=== PATIENT | female | born 1975 | race Caucasian/White ===

== ENCOUNTER 2016-12-19 00:33 | Emergency (ER) | payer BC, MEDICAID ==
[~2016-12-19] VITALS: Ht 157.5 cm; Wt 54.5 kg
[~2016-12-19 00:33] MED LIST: AMBIEN 5MG TABLE5 MG PO; AMITRIPTYLINE H10 M1 PO; AMPYRA10 MG PO; ASTELIN NASAL S34 ML NS; AUBAGIO14 MG PO; BACLOFEN PO; BACTROBAN 22GM22 GM NAS; BCP TD; BETASERON0.3 MG SC; CALCIUM CITRAT250 MG PO; CALCIUM CITRATE PO; CARBATROL100 MG PO; COLACE 100100 MG/CAP PO; COUMADIN 5MG5 MG/TAB PO; DEPO-PROVER150 MG/M1 IM; DESYREL 50MG50 MG PO; DULCOLAX S10 MG/SUPP RC; EC NAPROSYN500 MG PO; FISH OIL CONC1000 MG PO; FLEET ENEM1 BOT/133 RC; FLORINEF ACETA0.1 MG PO; IBUPROFEN600 MG PO; KLONOPIN 0.5MG0.5 MG PO; KLONOPIN 1MG1 MG PO; LIORESAL 1010 MG/TAB PO; LIORESAL20 MG PO; MILK OF MA400 MG/5 M PO; MOTRIN 600600 MG/TAB PO; MULTIVITAMIN1 TA1 PO; NAPROSYN500 MG PO; NEXIUM 40MG40 MG PO; NEXIUM40 MG PO; OMEGA-31 SGL PO; OMEGA-31000 MG PO; PHENERGAN 25 TA25 MG PO; POLYETHYLENE GL1 PO6; PROTONIX 40MG T40 MG PO; REBIF44 MCG/0.5 SC; REGLAN 10MG10 MG/TAB PO; RITALIN 5MG5 MG/TAB PO; SENOKOT S 50 MG1 TAB PO; SONATA10 MG PO; SPRINTEC 35 MCG1 TAB PO; TRAZODO50 MG PO; TYLENOL 500MG500 MG PO; ULTRAM50 MG PO; VITAMIN D 400400 IU PO; VITAMIN D31000 IU PO; [UNRECOGNIZED DRUG - OTHER] RC
[2016-12-19 00:37] VITALS: BP 124/71; TEMP 98.7
[2016-12-19] MEDS ORDERED: AMOXICILLIN 8751 TAB PO (01:11)
[2016-12-19] MEDS ORDERED: MAGIC MOUTH PO (01:11)
[2016-12-19] MEDS ORDERED: VALTREX1 GM PO (01:11)
[2016-12-19 01:26] VITALS: PULSE 63
== END 2016-12-19 01:27 | disposition home or self-care (01) ==
LOC: COL.ER 00:33
DX: J02.9 Acute pharyngitis, unspecified (principal); G35 Multiple sclerosis; Z79.899 Other long term (current) drug therapy; B00.1 Herpesviral vesicular dermatitis

== ENCOUNTER → 2017-01-29 | Outpatient (CLI) | payer BC, MEDICAID ==
[~2017-01-29] MED LIST changes: +AMOXICILLIN 8751 TAB PO; +MAGIC MOUTH PO; +VALTREX1 GM PO
== END ==
LOC: MC.RAD 14:38
DX: Z12.31 Encounter for screening mammogram for malignant neoplasm of breast (principal)

== ENCOUNTER 2017-02-19 11:15 | Outpatient (RCR) | payer BC, MEDICAID | END 2017-02-23 11:14 | disposition still patient (30) | LOC: WSPT 11:15 | DX: G35 Multiple sclerosis (principal); R26.89 Other abnormalities of gait and mobility; R26.81 Unsteadiness on feet ==

== ENCOUNTER → 2018-02-22 | Outpatient (CLI) | payer BC, MEDICAID | LOC: MC.RAD 10:00 | DX: Z12.31 Encounter for screening mammogram for malignant neoplasm of breast (principal) ==

== ENCOUNTER 2018-04-01 08:08 | Emergency (ER) | payer BC, MEDICAID ==
[2018-04-01 08:12] VITALS: TEMP 97.9
[2018-04-01 08:50] LABS: BASO # 0.1 (0.0-0.2); BASO % 1.3 % (0.0-2.0); EOS # 0.2 (0.0-0.7); EOS % 4.3 % (0-4.0); GRAN # 1.9 (1.4-6.5); GRAN % 47.8 % (42.2-75.2); HEMATOCRIT 38.9 % (37.0-47.0); LYMPH # 1.3 (1.2-3.4); MEAN CELL VOLUME 94 fl (80.0-100.0); MEAN CORPUSCULAR HEMOGLOBIN 32 pg (27.0-31.0); MEAN CORPUSCULAR HGB CONC 33 g/dl (33.0-37.0); MEAN PLATELET VOLUME 10.1 fl (7.4-10.4); MONO # 0.5 (0.1-0.6); MONO % 13.3 % (1.7-9.3); PLATELET COUNT 239 K/mm3 (130-400); RED BLOOD COUNT 4.13 M/mm3 (4.10-5.30); REDCELL DISTRIBUTION WIDTH-CV 11.8 % (11.5-14.5)
[2018-04-01 09:04] LABS: ALANINE AMINOTRANSFERASE 26 U/L (9-52); ALBUMIN 3.7 gm/dL (3.5-5.0); ALKALINE PHOSPHATASE 47 U/L (50-136); ANION GAP 5 mmol/L (7-16); AST,SGOT 24 U/L (15-37); BILIRUBIN,TOTAL 0.4 mg/dL (0.0-1.0); BLOOD UREA NITROGEN 15 mg/dL (7-17); CALCIUM 10.7 mg/dL (8.4-10.2); CARBON DIOXIDE 32 mmol/L (22-30); CHLORIDE 103 mmol/L (98-107); CREATININE, serum 0.82 mg/dL (0.52-1.25); GLUCOSE 93 mg/dL (74-106); POTASSIUM 3.2 mmol/L (3.4-5.0); SODIUM 140 mmol/L (137-145); TOTAL PROTEIN 6.2 gm/dL (6.4-8.2)
[2018-04-01 09:15] LABS: TROPONIN-I < 0.012 ng/mL (0.000-0.034)
[2018-04-01] MEDS ORDERED: K-DUR 10 MEQ T10 MEQ PO (10:13)
[2018-04-01 10:22] VITALS: BP 132/74; PULSE 57
== END 2018-04-01 10:23 | disposition home or self-care (01) ==
LOC: COL.ER 08:08
PROVIDERS: Emergency Medicine
DX: R07.89 Other chest pain (principal); I10 Essential (primary) hypertension
CPT/HCPCS: J1885

== ENCOUNTER 2018-06-02 13:00 | Outpatient (RCR) | payer BC, MEDICAID ==
[~2018-06-02 13:00] MED LIST changes: +K-DUR 10 MEQ T10 MEQ PO
== END 2018-06-02 16:03 | disposition home or self-care (01) ==
LOC: MKS.ESL.PT 13:00
DX: G35 Multiple sclerosis (principal); R29.898 Other symptoms and signs involving the musculoskeletal system

== ENCOUNTER → 2019-05-09 | Outpatient (CLI) | payer BC, MEDICAID | LOC: MC.RAD 04-05 11:45 | DX: Z12.31 Encounter for screening mammogram for malignant neoplasm of breast (principal) ==

== ENCOUNTER → 2020-05-21 | Outpatient (CLI) | payer BC, MEDICAID | LOC: MC.RAD 15:13 | DX: Z12.31 Encounter for screening mammogram for malignant neoplasm of breast (principal) ==

== ENCOUNTER → 2021-03-07 | Outpatient (CLI) | payer BC, MEDICAID | LOC: COL.RAD 13:07 | DX: M79.671 Pain in right foot (principal) | CPT/HCPCS: J3301; Q9967 ==

== ENCOUNTER → 2021-05-07 | Outpatient (CLI) | payer BC, MEDICAID | LOC: COL.RAD 13:47 | DX: M79.671 Pain in right foot (principal) ==

== ENCOUNTER → 2021-06-13 | Outpatient (CLI) | payer BC, MEDICAID | LOC: MC.RAD 10:30 | DX: Z12.31 Encounter for screening mammogram for malignant neoplasm of breast (principal); N63.10 Unspecified lump in the right breast, unspecified quadrant ==

== ENCOUNTER → 2021-06-19 | Outpatient (CLI) | payer BC, MEDICAID | LOC: MC.RAD 07:00 | DX: R92.8 Other abnormal and inconclusive findings on diagnostic imaging of breast (principal) ==

== ENCOUNTER → 2022-01-26 | Outpatient (CLI) | payer BC, MEDICAID | LOC: COL.RAD 13:15 | DX: M19.012 Primary osteoarthritis, left shoulder (principal) | CPT/HCPCS: A9575; Q9967 ==

== ENCOUNTER → 2022-06-30 | Outpatient (CLI) | payer BC, MEDICAID | LOC: MC.RAD 13:59 | DX: Z12.31 Encounter for screening mammogram for malignant neoplasm of breast (principal); N64.89 Other specified disorders of breast ==

== ENCOUNTER → 2022-07-07 | Outpatient (CLI) | payer BC, MEDICAID | LOC: MC.RAD 14:13 | DX: N63.14 Unspecified lump in the right breast, lower inner quadrant (principal) ==

== ENCOUNTER 2024-05-31 08:21 | Inpatient (IN) | payer BC, MEDICAID ==
[~2024-05-31] VITALS: Ht 157.5 cm; Wt 62.0 kg
[~2024-05-31 08:21] MED LIST changes: -CALCIUM CITRATE PO; +CALCIUM CITRATE1 TA1 PO; +LEADER CLE17 GM/Dose PO; +MULTI VITAMINS1 TAB PO; -MULTIVITAMIN1 TA1 PO; +OMEGA-3 FISH1000 MG PO; -OMEGA-31 SGL PO; -POLYETHYLENE GL1 PO6
--- NOTE | 2024-05-31 13:00 | NUR ---
Pt arrived @ 1230. Transported from [facility] by transportation services. Pt a&ox4. Ambulates with assist x1, walker, and gait belt. Intake and assessment complete. Pt arrived with a small bag, suitcase, and purse. Transfer paperwork received from CINDY. Pt oriented to room and settled in her bed. No further needs at this time. Call light and personal belongings within reach. Bed exit alarm on.
[2024-05-31] MEDS ORDERED: Acetaminophen 325 MG TAB PO PRN (13:30)
[2024-05-31] MEDS ORDERED: Sennosides/Docusate 8.6-50 MG TAB PO PRN (13:30)
[2024-05-31] MEDS ORDERED: Docusate Sodium 100 MG CAP PO PRN (13:30)
[2024-05-31] MEDS ORDERED: Polyethylene Glycol 3350 17 GM PDS PO PRN (13:30)
[2024-05-31] MEDS ORDERED: NEURONTIN300 MG/CAP PO (13:39)
[2024-05-31] MEDS ORDERED: COZAAR100 MG PO (13:40)
[2024-05-31] MEDS ORDERED: PLENDIL 2.5MG2.5 MG PO (13:41)
[2024-05-31] MEDS ORDERED: Ibuprofen 600 MG TAB PO PRN (14:00)
[2024-05-31] MEDS ORDERED: Baclofen 10 MG TAB PO SCH (14:00)
[2024-05-31] MEDS ORDERED: Acetaminophen 500 MG TAB PO PRN (14:00)
[2024-05-31] MEDS ORDERED: valACYclovir 500 MG TAB PO ONE (14:00)
[2024-05-31] MEDS ORDERED: clonazePAM 1 MG TAB PO SCH ×2 (15:45→21:00)
[2024-05-31] MEDS ORDERED: Amoxicillin/Clavulanate K+ 875/125 MG TAB PO SCH (17:00)
[2024-05-31] MEDS ORDERED: Heparin 5,000 UNITS/ML 1 ML VIAL SQ SCH (17:32)
[2024-05-31 18:33] VITALS: BP 125/69; PULSE 73; TEMP 97.7
[2024-05-31 19:00] VITALS: BP_SYST 125
--- NOTE | 2024-05-31 19:00 | NUR ---
RECEIVED CHANGE OF SHIFT REPORT FROM DAY SHIFT NURSE. PATIENT IN BED, FAMILY IN ROOM. PATIENT'S HOME MEDS OF AMPURA AND KESIMPTA WERE BROUGHT FROM HOME BY FAMILY, GIVEN TO NURSING. INFORMED PHARMACY OF THESE TWO HOME MEDS FOR PHARMACY TO TAKE AND LABEL FOR PATIENT USE DURING THEIR IPR STAY. PATIENT STATES KESIMPTA IS A NEW MED THAT PATIENT WANTS TO START THIS WEDNESDAY. PATIENT REPORTS TAKES AMPURA AT SPECIFIC TIMES OF 6 AM AND 6 PM AT HOME. BOTH MEDS SENT DOWN TO PHARMACY.
[2024-05-31] MEDS ORDERED: Gabapentin 300 MG CAP PO SCH (21:00)
[2024-05-31] MEDS ORDERED: Patient's Own Medication Item PO SCH (21:00)
[2024-05-31] MEDS ORDERED: KESIMPTA P20 MG/0.4 SQ (23:33)
[2024-06-01 05:17] VITALS: BP 107/74; PULSE 75; TEMP 98.5
[2024-06-01 07:00] VITALS: BP_SYST 107
--- NOTE | 2024-06-01 07:14 | NUR ---
CHANGE OF SHIFT REPORT GIVEN TO DAY SHIFT NURSEFRITZ.
[2024-06-01] MEDS ORDERED: Omega-3 Fatty Acid Esters (OTC) 1,000 MG CAP PO SCH (09:00)
[2024-06-01] MEDS ORDERED: CHOLECALCIFEROL PO SCH (09:00)
[2024-06-01] MEDS ORDERED: Fludrocortisone 0.1 MG TAB PO SCH (09:00)
[2024-06-01] MEDS ORDERED: Losartan 50 MG TAB PO SCH (09:00)
--- NOTE | 2024-06-01 09:55 | NUR ---
PT UP TO RECLINER FOR BREAKFAST. UP TO BR VOIDED AND RETURNED TO RECLINER. EATING AND DRINKING WITH NO NAUSEA OR VOMITING.
[2024-06-01] MEDS ORDERED: Patient's Own Medication Item IM SCH (11:30)
--- NOTE | 2024-06-01 15:35 | NUR ---
platform worker met with pt to complete intake assessment and introduce her to the unit. Pt confirms to live with her family in [place]. She sees Dr. Ortega for PCP needs and obtains medications from [facility] with no difficulties. She reports her , Hany [phone] as her contact. Her mother, Mo Charlton" [phone] is her DPOA-HC and this was verified on file. She reports to be independent with ADLS and uses a cane, FWW, rolator, and wheelchair for DME. She reports to have 8 steps to get inside her home, then it is three stories. She can typically obtain everything on the main floor, except showering. Pt reports that her mother or daughter drive her to appointments. SW informed her on team conference meetings and family meeting procedures. She had no questions. Discharge Plan: re-eval
[2024-06-01] MEDS ORDERED: Patient's Own Medication Item SQ ONE (16:15)
[2024-06-01 17:43] VITALS: BP 121/82; PULSE 73; TEMP 97.7
[2024-06-01 19:09] VITALS: BP_SYST 121
--- NOTE | 2024-06-02 00:35 | NUR ---
ASSESSMENT COMPLETED EARLIER. MEDICATIONS ADMINISTERED PER EMAR. PT REFUSED HOME MEDICATION STATED "IT IS TOO LATE TO TAKE ME MEDICATION NOW, IF I TAKE IT AT NOW, I HAVE AN INCREASED RISK FOR SEIZURES".
[2024-06-02 06:00] VITALS: BP 129/76; PULSE 77; TEMP 98.4
[2024-06-02 07:03] VITALS: BP_SYST 129
--- NOTE | 2024-06-02 08:47 | NUR ---
PT UP TO BR WITH SBAX1, VOIDED AND THEN TO RECLINER FOR BREAKFAST. REVIEWED CARE PLAN. VSS, PT ATE 100 % OF BREAKFAST. WORKING WITH THERAPY THIS AM. VSS. PT DENIES NEEDS OR PAIN.
--- NOTE | 2024-06-02 11:38 | NUR ---
ironworker met with pt to check-in and assess for any needs. She reports no needs and wanted more information on SW's role. SW provided this. Discharge Plan: re-eval
[2024-06-02 17:57] VITALS: BP 113/72; PULSE 76; TEMP 98.2
[2024-06-02] MEDS ORDERED: Patient's Own Medication Item PO SCH (18:00)
[2024-06-02 19:26] VITALS: BP_SYST 113
--- NOTE | 2024-06-02 20:00 | NUR ---
PT AWAKE AND RESTING IN BED, READING BOOK. SCHEDULED MEDS GIVEN PER eMAR. PT DENIES PAIN OR DISCOMFORT. GLASSES IN PLACE. NO FURTHER CONCERNS. BED ALARM ON AND CALL LIGHT WITHIN REACH.
[2024-06-03 05:31] VITALS: BP 112/73; PULSE 68; TEMP 98.1
[2024-06-03 06:48] VITALS: BP_SYST 112
--- NOTE | 2024-06-03 06:48 | NUR ---
Pt sitting up in bed on phone. Denies needs at this time. Call light in reach and bed alarm on.
--- NOTE | 2024-06-03 07:25 | NUR ---
Pt sitting up in chair eating breakfast. A&Ox4. VSS. S1S2. Clear lungs on RA. ABD flat, soft, non-tender with audible bowel sounds. Palpable pulses in all extremities with 5/5 strength. Pt states pain in L shoulder 5/10. Applied cream. No further needs. Call light in reach and chair alarm on.
[2024-06-03] MEDS ORDERED: clonazePAM 0.5 MG TAB PO SCH (09:00)
--- NOTE | 2024-06-03 09:37 | NUR ---
Pt requesting Tylenol for continued shoulder pain (03/22) prior to therapy. Administered Tylenol.
[2024-06-03 17:50] VITALS: BP 106/70; PULSE 71; TEMP 98
[2024-06-03 19:00] VITALS: BP_SYST 106
--- NOTE | 2024-06-03 20:30 | NUR ---
Scheduled meds administered per NOV. Shift assessment complete. Pt. has multiple scabbed abrasions to BLE she attests to shaving. Abrasions are dressed w/ bandaids. All other findings WNL. Pt. reports back pain rated 4/10 and states her pain goal is 5/10- denying need for analgesia. Pt. denies needs at this time. Call light in reach and fall precautions in place.
--- NOTE | 2024-06-03 22:00 | NUR ---
PCT reported pt. is requesting Volteran gel. This nurse assessed pt. She rates pain to Lt. shoulder 02/20. Volteran gel applied to Lt. shoulder per NOV. Pt. denies further requests at this time. Call light in reach.
[2024-06-04 06:00] VITALS: BP 113/69; PULSE 64; TEMP 98.1
--- NOTE | 2024-06-04 06:19 | NUR ---
Pt. had uneventful evening. Shoulder pain subsided w/ application of voltaren gel. Pt. ambulated to the bathroom multiple times w/ stand by assist walker and gait belt. Pt denies requests or complaints at this time. Call light in reach and fall precautions in place.
[2024-06-04 06:45] VITALS: BP_SYST 113
--- NOTE | 2024-06-04 06:45 | NUR ---
Pt sitting up in bed. Denies needs at this time. Call light in reach and bed alarm on.
--- NOTE | 2024-06-04 07:40 | NUR ---
Pt sitting up in bed eating breakfast. A&Ox4. VSS. S1S2. Clear lungs on RA. ABD round, soft, non-tender wtih audible bowel sounds. Palpable pulses in all extremities. 4/5 strength in all extremities. Multiple small abrasions/cuts from shaving with razor on Bilateral Lower Extremities. Pt denies pain, n/v, headahces at this time. Call light in reach and bed alarm on.
--- NOTE | 2024-06-04 16:23 | NUR ---
Pt requested to speak with Materials And Corrosion Engineer. Explained Materials And Corrosion Engineer would be in tomorrow and Pt would be able to speak with them. Pt concerned she is not eating as much as the Materials And Corrosion Engineer wants, but still feels extremely full. Nurse advised Pt to not eat so much that she feels sick but rather spread meals/snacks out. Pt reports ABD pain 02/20. Pt unable to describe other than saying Full. Pt states she has been passing gas. Pt denies need to use restroom at this time. Applied warm balnket for comfort and will continue to monitor and encourage restroom. Call light in reach and bed alarm on.
[2024-06-04 17:50] VITALS: BP 100/67; PULSE 59; TEMP 98.4
[2024-06-04 19:12] VITALS: BP_SYST 100
--- NOTE | 2024-06-04 19:12 | NUR ---
RECEIVED CHANGE OF SHIFT REPORT FROM DAY SHIFT NURSE.
[2024-06-05 06:00] VITALS: BP 117/71; PULSE 56; TEMP 97.7
[2024-06-05 07:00] VITALS: BP_SYST 117
--- NOTE | 2024-06-05 07:13 | NUR ---
CHANGE OF SHIFT REPORT GIVEN TO DAY SHIFT NURSELETICIA. PATIENT UP TO BATHROOM DURING THE NIGHT WITH WW WITH SBA X1 STAFF WHEN UP OUT OF BED. BED EXIT ALARM ON WHEN IN BED WITH CALL LIGHT WITHIN PATIENT'S REACH.
--- NOTE | 2024-06-05 08:00 | NUR ---
Pt a&ox4. VSS. Pt c/o pain in L shoulder. PRN voltaren gel applied. Pt up with assist x1, walker, and gait belt. Shift assessment complete and medications administered. Pt up in recliner eating breakfast. No further needs at this time. Call light within reach.
--- NOTE | 2024-06-05 15:35 | NUR ---
Glass Enamel Mixer met with patient to check in and discuss scheduling a family meeting. Patient requested SW speak with her mother, Becky to schedule. Patient advised her may be able to participate by phone but isn't quite sure. SW contacted Becky and scheduled meeting for at 0930.
[2024-06-05 18:33] VITALS: BP 109/55; PULSE 63; TEMP 98
[2024-06-05 19:00] VITALS: BP_SYST 109
--- NOTE | 2024-06-05 19:30 | NUR ---
RECEIVED CHANGE OF SHIFT REPORT FROM DAY SHIFT NURSE.
[2024-06-06 05:19] VITALS: BP 103/63; PULSE 54; TEMP 98.1
[2024-06-06 07:04] VITALS: BP_SYST 103
--- NOTE | 2024-06-06 07:28 | NUR ---
CHANGE OF SHIFT REPORT GIVEN TO DAY SHIFT NURSEMARY. PATIENT UP TO BATHROOM PRIOR TO HS AND SLEPT MOST OF NIGHT WITH NO REPORTED NEEDS OR CONCERNS REPORTED TO NURSING. EXIT ALARM ON WHEN IN BED WITH CALL LIGHT WITHIN PATIENT'S REACH.
[2024-06-06] MEDS ORDERED: KLONOPIN 1MG1 MG PO (15:17)
[2024-06-06] MEDS ORDERED: VALTREX 50500 MG/TAB PO (15:19)
[2024-06-06 17:11] VITALS: BP 104/71; PULSE 72; TEMP 97.5
[2024-06-06 19:05] VITALS: BP_SYST 104
--- NOTE | 2024-06-06 23:38 | NUR ---
PT RESTING IN BED. PT GOT UP TO BRUSH TEETH- PT DID THIS INDEPENDENTLY WITH SBA OF A WALKER AND GAIT BELT. ASSESSMENT COMPLETED EARLIER. MEDICATIONS ADMINISTERED PER EMAR. AMBULATED PT TO BATHROOM WITH GAIT BELT AND WALKER- TOLERATED THIS OK. PT HAS NO COMPLAINTS OF N/V. PT HAS COMPLAINTS OF SOME SLIGHT PAIN IN LEFT SHOULDER WHEN LAYING ON IT- PT DENIES ANY INTERVENTIONS OFFERED; PT STATES "WHEN I LAY ON MY RIGHT SIDE, THE PAIN GOES AWAY". VSS. A/OX4. PT HAS NO OTHER COMPLAINTS AT THIS TIME. CALL LIGHT IS WITHIN REACH. BED IS IN LOWEST POSITION.
--- NOTE | 2024-06-07 00:58 | NUR ---
PT IS SLEEPING WELL. ADMINISTERED HEPRIN TO PT. SHE HAS NO COMPLAINTS AT THIS TIME. CALL LIGHT IS WITHIN REACH, BED ALARM IS ON, BED IN LOWEST POSITION. DOOR IS OPEN.
--- NOTE | 2024-06-07 03:45 | NUR ---
PT REQUESTED TYLENOL FOR RIGHT SIDE/RIB PAIN. PT STATES SHE LAID ON HER RIGHT SIDE FOR TOO LONG. ADMINISTERED PER EMAR. ASKED PT IF THERE IS ANYTHING ELSE THIS NURSE COULD DO FOR HER, PT HAS NO OTHER COMPLAINTS. CALL LIGHT IS WITHIN REACH. BED IS IN LOWEST POSITION. BED ALARM IS ON.
[2024-06-07 06:14] VITALS: BP 136/84; PULSE 59; TEMP 97.5
[2024-06-07 07:00] VITALS: BP_SYST 136
--- NOTE | 2024-06-07 09:30 | NUR ---
Pt. sitting up in bed. Pt. is A&OX3, assessment complete. Pt. reports generalized pain at a 4 on pain scale, giving Tylenol. Pt. denies further needs, call light within reach.
--- NOTE | 2024-06-07 16:21 | NUR ---
Pit Crane Operator met with patient to review and provide copy of team conference notes. Patient's mother, Becky and patient's two daughters are at bedside. Becky confirmed she will be at the family meeting tomorrow. TAMRA asked patient about calling her to participate by phone and she stated she would ask him, but that he likely would not want to attend, even by phone. TAMRA discussed discharge date of 06/14/24 and recommendation for Home Health vs Outpatient PT. Patient stated prior to her hospitalization, she was supposed to start HH services with [facility] so she would prefer to do HH at time of discharge. TAMRA Emerson faxed referral to [facility] for review.
[2024-06-07 18:21] VITALS: BP 114/79; PULSE 55; TEMP 98.3
[2024-06-07 19:00] VITALS: BP_SYST 114
--- NOTE | 2024-06-07 23:35 | NUR ---
PT IN BED. ASSESSMENT COMPLETED EARLIER. DENIES N/V OR SOA/SOB. PT BRUSHED HER TEETH AND FLOSSED. COMPLAINS OF SHOULDER PAIN. ASSESSMENT COMPLETED EARLIER. MEDICATIONS ADMINISTERED PER EMAR. NO OTHER COMPLAINTS AT THIS TIME.
[2024-06-08 06:06] VITALS: BP 122/64; PULSE 58; TEMP 98.3
[2024-06-08 09:00] VITALS: BP_SYST 122
[2024-06-08] MEDS ORDERED: Patient's Own Medication Item SQ SCH (09:00)
--- NOTE | 2024-06-08 09:00 | NUR ---
Pt. sitting up in bed. Pt. is A&OX3, assessment complete. Pt. reports generalized pain at a 3 on pain scale, gave Tylenol per request. Pt. denies further needs, call light within reach.
--- NOTE | 2024-06-08 10:42 | NUR ---
Rescue Boat Operator participated in patient's family meeting which included patient's mother, Becky and daughter, Jayjay at bedside. Patient stated her would be unable to participate by phone as he is busy at work. HEBER Ashraf Director opened meeting by explaining it's purpose followed by medical updates from Dr. Hathaway. PT/OT/ST gave update on patient's progress and recommendations. The team discussed the importance of patient not over-exerting herself as fatigue can cause an exacerbation of her MS. Patient verbalized understanding and stated she has been reading through the literature provided to her by PT. Patient also stated it is difficult for her to take breaks when she is doing a task. Discharge date for Wednesday, 06/14 was reviewed and plan will be for [facility] to provide services. After meeting, TAMRA contacted Brian at [facility] and provided discharge date. Brian advised they are able to accept patient for services.
[2024-06-08 16:50] VITALS: BP 98/56; PULSE 62; TEMP 98.1
[2024-06-08] MEDS ORDERED: Gabapentin 300 MG CAP PO SCH (18:00)
[2024-06-08 18:40] VITALS: BP_SYST 98
--- NOTE | 2024-06-08 21:00 | NUR ---
Patient resting in bed. Denies any pain or needs at this time. Assessment complete. Call light and personal items in reach. Bed in low position and bed alarm on.
[2024-06-08 21:11] VITALS: BP 113/73; PULSE 75
[2024-06-09 06:09] VITALS: BP 115/79; PULSE 74; TEMP 98.4
[2024-06-09 06:21] VITALS: BP 115/80; PULSE 61; TEMP 98.8
[2024-06-09 07:00] VITALS: BP_SYST 115
--- NOTE | 2024-06-09 08:26 | NUR ---
PT UP TO BR. RETURNED TO RECLINER, AM MEDS GIVEN ORDERED. PT ATE 100 % OF BREAKFAST. CAREPLAN REVIEWED. PT TO THERAPY AT THIS TIME. VSS.
--- NOTE | 2024-06-09 10:20 | NUR ---
Chief Business Officer faxed clinical updates to [facility]. SW also followed up with patient to check in before the weekend. Patient stated she had no concerns at this time and felt her family meeting went well yesterday. SW let patient know that [facility] has accepted her for services and will contact her at time of discharge to set up visits.
[2024-06-09] MEDS ORDERED: Melatonin 3 MG TAB PO PRN (10:30)
[2024-06-09 18:24] VITALS: BP 115/75; PULSE 62; TEMP 97.5
[2024-06-09 19:15] VITALS: BP_SYST 115
--- NOTE | 2024-06-09 20:00 | NUR ---
PT AWAKE AND RESTING IN BED. SCHEDULED MEDS GIVEN PER eMAR. DENIES PAIN. NO FURTHER CONCERNS. BED ALARM ON AND CALL LIGHT WITHIN REACH.
[2024-06-10 05:42] VITALS: BP 130/83; PULSE 61; TEMP 98
[2024-06-10 07:00] VITALS: BP_SYST 130
--- NOTE | 2024-06-10 08:13 | NUR ---
Patient resting in bed, alert and oriented x4, VSS. Statessome mild pain in her left shoulder. Do not like breakfast meals and the options on our menu are too limited. Assessment completed, meds given. No further needs at this time. Call light within reach.
[2024-06-10 17:45] VITALS: BP 108/76; PULSE 76; TEMP 98
[2024-06-10 18:52] VITALS: BP_SYST 108
--- NOTE | 2024-06-10 19:23 | NUR ---
PT AWAKE AND RESTING IN CHAIR. AMBULATED TO BED X1 ASSIST W/ WALKER. GLASSES IN PLACE. C/O SOME PAIN IN LEFT SHOULDER. PRN PAIN MEDS OFFERED. NO FURTHER CONCERNS. BED ALARM ON AND CALL LIGHT WITHIN REACH.
--- NOTE | 2024-06-11 02:30 | NUR ---
PT C/O PAIN ON RIGHT SIDE D/T POSITIONING IN BED. PRN TYLENOL OFFERED AND GIVEN. ASSISTED PT TO COMFORTABLE POSITION IN BED.
[2024-06-11 06:02] VITALS: BP 123/79; PULSE 75; TEMP 98.2
[2024-06-11 07:00] VITALS: BP_SYST 123
--- NOTE | 2024-06-11 07:50 | NUR ---
PATIENT SITTING UP IN BED ON COMPUTER. PATIENT DENIES PAIN AT THIS TIME. ON ROOM ROOM AIR. SOME TENDERNESS TO LEGS DURING SHIFT ASSESSMENT. PATIENT DENIES ANY OTHER NEED AT THIS TIME. CALL LIGHT WITHIN REACH. BED AT LOWEST POSITION.
--- NOTE | 2024-06-11 14:09 | NUR ---
GATE CUTTER faxed clinical updates to [facility]
[2024-06-11 17:43] VITALS: BP 95/67; PULSE 86; TEMP 98.9
[2024-06-11 19:25] VITALS: BP_SYST 95
--- NOTE | 2024-06-11 22:25 | NUR ---
PT LAYING IN BED. PT HAS NO COMPLAINTS AT THIS TIME. A/OX4. DENIES SOA. PT DENIES ANY N/V. CALL LIGHT IS WITHIN REACH. ASSESSMENT COMPLETED EARLIER, MEDICATIONS ADMINISTERED PER EMAR
[2024-06-12 05:40] VITALS: BP 123/63; PULSE 66; TEMP 98
[2024-06-12 07:00] VITALS: BP_SYST 123
--- NOTE | 2024-06-12 08:58 | NUR ---
PT UP TO BR AFTER BREAKFAST. AM MEDS GIVEN ORDERED. VSS. PT DRESSED INDEPENDENTLY. TRANSFERS WITH SBA X1. CARE PLAN REVIEWED WITH PT.
--- NOTE | 2024-06-12 14:55 | NUR ---
Cattle Producers met with patient to follow up after the weekend. Patient stated the weekend was "slow" but that she got a lot of reading done. Patient inquired about discharge planning on Wednesday and SW reminded her she can leave anytime after 1100.
[2024-06-12 18:02] VITALS: BP 95/65; PULSE 73; TEMP 98.2
[2024-06-12 20:00] VITALS: BP_SYST 95
--- NOTE | 2024-06-12 22:33 | NUR ---
UPON SHIFT ASSESSMENT, ARA WAS IN BED AND READING A BOOK. SHE IS A&O X4 AND IN GOOD SPIRITS. SHE DENIES SOA AND VS ARE WNL. NORMAL STRENGTH NOTED WITH DORSA FLEXION AND HAND GRASPS. PATIENT STATES WHEN JAG WEIGHT TO RT FOOT, NEUROPATHIC PAIN IS FELT-TINGLINGLY, BURNING AND NUMBNESS. PEDAL PULSES PALPABLE. NEUROs ARE WNL. MED PASS COMPLETE. CALL LIGHT WITHIN REACH AND BEDALARM ON.
[2024-06-13 06:00] VITALS: BP 119/76; PULSE 61; TEMP 97.8
[2024-06-13 07:00] VITALS: BP_SYST 119
--- NOTE | 2024-06-13 07:30 | NUR ---
PT A&OX4. VSS. PT IS CURRENTLY IN BED EATING BREAKFAST. PT IS UP WITH ASSIST X1, WALKER, AND GB. SHIFT ASSESSMENT COMPLETE AND MEDS ADMINISTERED. PT PLANNING ON GOING HOME TOMORROW W/ HH. NO FURTHER NEEDS AT THIS TIME. CALL LIGHT AND PERSONAL BELONGINGS WITHIN REACH.
--- NOTE | 2024-06-13 14:14 | NUR ---
The Interdisciplinary team discussed making the patient Independent in her room during Team Huddle. Her current Tirado Fall Score is moderate at 40 as nursing documented. Her Tinetti score was moderate at 19. She is currently using a walker w/ wheels for mobility & self care & demonstrates good safety awareness. The team feels she is capable of being Independent in her room at this time as she is aware of her deficits/limitations & cognitively able to problem solve her situations.--Pascale Pacheco, PD
--- NOTE | 2024-06-13 15:52 | NUR ---
Windows Server Administrator contacted Brian at [facility] and faxed clinical updates. They are ready to accept patient tomorrow for services. SW also checked in with patient and she stated she is ready to get back home.
[2024-06-13 18:17] VITALS: BP 113/76; PULSE 88; TEMP 97.9
[2024-06-13 18:45] VITALS: BP_SYST 113
--- NOTE | 2024-06-13 20:25 | NUR ---
Patient resting in bed. Denies any pain or needs at this time. Assessment complete. Call light and personal items in reach. Bed in low position.
[2024-06-14 05:25] VITALS: BP 127/85; PULSE 51; TEMP 98.1
[2024-06-14 07:00] VITALS: BP_SYST 127
--- NOTE | 2024-06-14 08:30 | NUR ---
Pt a&ox4. VSS. Currently reading in bed. No c/o pain at this time. Pt is now modified indepent in room w/ walker. Planning to discharge home today. States that her ride will be here around noon. Shift assessment complete and medications administered. No further needs at this time. Call light within reach.
--- NOTE | 2024-06-14 12:30 | NUR ---
Pt taken down to ER entrance by w/c. Family helped with personal belongings. Pt taken home by POV with mother and daughter.
--- NOTE | 2024-06-14 16:38 | NUR ---
Clinical Asst contacted [facility] and faxed discharge orders.
--- NOTE | 2024-06-15 14:01 | NUR ---
Discharge QIM scores were reviewed by the team. Code of 6 chosen for sit to stand was determined by team discussion to be the most usual performance for this patient during the discharge assessment period. Code of 6 chosen for walking 10 feet was determined by team discussion to be the most usual performance for this patient during the discharge assessment period.--Pascale Pacheco,
== END 2024-06-14 12:45 | disposition home health service (06) | DRG 59 ==
PROVIDERS: ADMIT Physical Medicine & Rehabilitation Sports Medicine
DX: G35 Multiple sclerosis (principal); G90.3 Multi-system degeneration of the autonomic nervous system; Z74.09 Other reduced mobility; I10 Essential (primary) hypertension; Z79.899 Other long term (current) drug therapy; R26.0 Ataxic gait; R53.81 Other malaise; F41.9 Anxiety disorder, unspecified; K59.01 Slow transit constipation; H51.20 Internuclear ophthalmoplegia, unspecified eye; G50.0 Trigeminal neuralgia; M79.672 Pain in left foot; M25.512 Pain in left shoulder; K21.9 Gastro-esophageal reflux disease without esophagitis; G47.00 Insomnia, unspecified
CPT/HCPCS: J1644